=== PATIENT | female | born 1980 | race Caucasian/White ===

== ENCOUNTER 2016-09-13 04:25 | Emergency (ER) | payer OTHER ==
[~2016-09-13] VITALS: Ht 170.2 cm; Wt 94.0 kg
[~2016-09-13 04:25] MED LIST: BENT20TA PO; PROM2SUP RECTAL
[2016-09-13 04:28] VITALS: BP 176/113; PULSE 74; RESP 18; TEMP 97.7; O2SAT 100
[2016-09-13] MEDS ORDERED: ALBUAER3 INH (05:19)
--- NOTE | 2016-09-13 05:59 | PD ---
HPI Chief Complaint: GI Complaint Time Seen by Provider: 05:38 Travel History International Travel<30 days: No Contact w/Intl Traveler<30days: No Traveled to known affect area: No History of Present Illness HPI 36-year-old female came to the emergency room with history of severe abdominal pain, nausea and vomiting. Patient says this has been going on for past 3 days and progressively worsening. She has had similar symptoms in the past and was in the emergency room twice over the past one year. She has history of gastric bypass surgery done about 12-15 years ago in [place]. Patient was hypertensive in triage. She looks uncomfortable and anxious. She pointed out to the entire abdomen when I asked her location of the pain. No aggravating or relieving factors identified. [facility] Past Medical History Narrative Medical List of her past medical, surgical, social and family history was reviewed from the nursing note Asthma: Yes Diminished Hearing: No Respiratory: Yes (ASTHMA) ?: Not LMP: CURRENTLY Past Surgical History Abdominal Surgery: Yes (GASTRIC BYPASS ) Cholecystectomy: Yes Tonsillectomy: Yes Other Surgery: Yes (breast augmentation) Social History Alcohol Use: Yes (rare) Tobacco Use: No (quit 6-8 mos ago) Substance Use: No Allergies-Medications (Allergen,Severity, Reaction): Coded Allergies: Codeine (Verified Allergy, Unknown, 09/13/16) Comments List of her allergies reviewed from the nursing note Reported Meds & Prescriptions Reported Meds & Active Scripts Active Zofran Odt (Ondansetron Odt) 4 Mg Tab 4 Mg SL Q6HR PRN [place] (Hydrocodone-Acetaminophen) 10-325 Mg Tab 1 Tab PO Q4H PRN Reported Proair Hfa 8.5 GM Inh (Albuterol Sulfate) 90 Mcg/Act Aer 2 Puff INH Q4-6H PRN 108 mcg/actuation Narrative Medication List of her home medications reviewed from the nursing note Review of Systems Except as stated in HPI: all other systems reviewed are Neg Physical Exam Narrative GENERAL: Awake, alert, obese, anxious, moderate to significant distress SKIN: Warm and dry. HEAD: Atraumatic. Normocephalic. EYES: Pupils equal and round. No scleral icterus. No injection or drainage. ENT: No nasal bleeding or discharge. Mucous membranes pink and moist. NECK: Trachea midline. No JVD. CARDIOVASCULAR: Regular rate and rhythm. No murmur appreciated. RESPIRATORY: No accessory muscle use. Clear to auscultation. Breath sounds equal bilaterally. GASTROINTESTINAL: Abdomen soft, non-tender, nondistended. Hepatic and splenic margins not palpable. MUSCULOSKELETAL: No obvious deformities. No clubbing. No cyanosis. No edema. NEUROLOGICAL: Awake and alert. No obvious cranial nerve deficits. Motor grossly within normal limits. Normal speech. PSYCHIATRIC: Appropriate mood and affect; insight and judgment normal. Data Data Last Documented VS Vital Signs Date Time Temp Pulse Resp B/P Pulse Ox O2 Delivery O2 Flow Rate FiO2 09/13/16 10:55 133/92 95 09/13/16 08:41 73 20 Room Air Orders Complete Blood Count With Diff (09/13/16 06:01) Comprehensive Metabolic Panel (09/13/16 06:01) Lipase (09/13/16 06:01) Urinalysis - C+S If Indicated (09/13/16 06:01) Iv Access Insert/Monitor (09/13/16 06:01) Ecg Monitoring (09/13/16 06:01) Oximetry (09/13/16 06:01) Morphine Inj (Morphine Inj) (09/13/16 06:15) Ondansetron Inj (Zofran Inj) (09/13/16 06:15) Pantoprazole Inj (Protonix Inj) (09/13/16 06:15) Sodium Chlor 0.9% 1000 Ml Inj (Ns 1000 M (09/13/16 06:01) Sodium Chloride 0.9% Flush (Ns Flush) (09/13/16 06:15) Ct Abd/Pel W/O Iv Contrast (09/13/16 06:04) Oral Contrast - Adult (09/13/16 06:07) Diatrizoate Liq ( Gastrocasandra Liq) (09/13/16 06:20) Morphine Inj (Morphine Inj) (09/13/16 08:30) Ondansetron Inj (Zofran Inj) (09/13/16 08:30) Sodium Chlor 0.9% 1000 Ml Inj (Ns 1000 M (09/13/16 09:00) Labs Laboratory Tests Test 09/13/16 09/13/16 05:40 08:37 White Blood Count 7.2 TH/MM3 Red Blood Count 3.96 MIL/MM3 Hemoglobin 12.7 GM/DL Hematocrit 36.6 % Mean Corpuscular Volume 92.4 FL Mean Corpuscular Hemoglobin 32.1 PG Mean Corpuscular Hemoglobin 34.8 % Concent Red Cell Distribution Width 14.0 % Platelet Count 214 TH/MM3 Mean Platelet Volume 8.3 FL Neutrophils (%) (Auto) 86.2 % Lymphocytes (%) (Auto) 8.4 % Monocytes (%) (Auto) 4.6 % Eosinophils (%) (Auto) 0.3 % Basophils (%) (Auto) 0.5 % Neutrophils # (Auto) 6.2 TH/MM3 Lymphocytes # (Auto) 0.6 TH/MM3 Monocytes # (Auto) 0.3 TH/MM3 Eosinophils # (Auto) 0.0 TH/MM3 Basophils # (Auto) 0.0 TH/MM3 CBC Comment DIFF FINAL Differential Comment Sodium Level 133 MEQ/L Potassium Level 3.4 MEQ/L Chloride Level 97 MEQ/L Carbon Dioxide Level 21.1 MEQ/L Anion Gap 15 MEQ/L Blood Urea Nitrogen 5 MG/DL Creatinine 0.72 MG/DL Estimat Glomerular Filtration 93 ML/MIN Rate Random Glucose 98 MG/DL Calcium Level 9.0 MG/DL Total Bilirubin 3.4 MG/DL Aspartate Amino Transf 55 U/L (AST/SGOT) Alanine Aminotransferase 57 U/L (ALT/SGPT) Alkaline Phosphatase 123 U/L Total Protein 7.6 GM/DL Albumin 3.8 GM/DL Lipase 270 U/L Urine Color YELLOW Urine Turbidity CLEAR Urine pH 7.5 Urine Specific [place] 1.016 Urine Protein TRACE mg/dL Urine Glucose (UA) NEG mg/dL Urine Ketones 150 mg/dL Urine Occult Blood NEG Urine Nitrite NEG Urine Bilirubin NEG Urine Urobilinogen 2.0 MG/DL Urine Leukocyte Esterase NEG Urine RBC 1 /hpf Urine WBC 1 /hpf Urine Squamous Epithelial 3 /hpf Cells Urine Mucus FEW /lpf Microscopic Urinalysis Comment CULT NOT INDICATED MDM Medical Decision Making Medical Screen Exam Complete: Yes Emergency Medical Condition: Yes Medical Record Reviewed: Yes Differential Diagnosis Small bowel obstruction, acute pancreatitis, Narrative Course 6:18 AM patient was medicated for pain. She was given IV Zofran and IV Protonix. Awaiting for the blood test results and the CAT scan to be done and resulted. 7:05 AM blood test results are back. White count is within normal limit older she has some left shift. Patient has elevated bilirubin and mildly elevated LFTs. However when trending back she has had higher bili last time. Case was signed over to the oncoming ER physician to follow-up on the CAT scan result. Procedures EKG Prior to Arrival: No Scripts Ondansetron Odt (Zofran Odt)4 Mg Tab4 Mg SL Q6HR PRN (Nausea/Vomiting) #10 TAB Ref 0 Prov:Perry Stanley MD 09/13/16 Hydrocodone-Acetaminophen ([place])10-325 Mg Tab1 Tab PO Q4H PRN (PAIN) #20 TAB Ref 0 Prov:Perry Stanley MD 09/13/16 Joao Hyatt MD Sep 13, 2016 05:59
[2016-09-13] MEDS ORDERED: SODIUM CHLOR 0.9% 1000 ML INJ 1,000 ML IV SCH (06:01)
[2016-09-13] MEDS ORDERED: SODIUM CHLORIDE 0.9% FLUSH 5 ML FLUSH IVF PRN (06:15)
[2016-09-13] MEDS ORDERED: ONDANSETRON HCL 4 MG/2 ML VIAL IVP ONE (06:15)
[2016-09-13] MEDS ORDERED: PANTOPRAZOLE SODIUM 40 MG VIAL IVP ONE (06:15)
[2016-09-13] MEDS ORDERED: MORPHINE SULFATE 4 MG/ML INJ IV PUSH ONE ×2 (06:15→08:30)
[2016-09-13] MEDS ORDERED: DIATRIZOATE MEGLUM/DIATRIZOATE SOD 9 ML CUP ONE (06:20)
[2016-09-13 06:30] VITALS: RESP 18; O2SAT 97
[2016-09-13 06:32] LABS: AUTOMATED NEUTROPHIL # 6.2 TH/MM3 (1.8-7.7); BASOPHIL % 0.5 % (0.0-2.0); EOSINOPHIL % 0.3 % (0.0-4.0); HEMATOCRIT 36.6 % (35.0-46.0); HEMO FLAGS DIFF FINAL; LYMPH % 8.4 % (9.0-44.0); LYMPHOCYTE # 0.6 TH/MM3 (1.0-4.8); MEAN CELL VOLUME 92.4 FL (80.0-100.0); MEAN CORPUSCULAR HEMOGLOBIN 32.1 PG (27.0-34.0); MEAN CORPUSCULAR HGB CONC 34.8 % (32.0-36.0); MONO % 4.6 % (0.0-8.0); NEUT % 86.2 % (16.0-70.0); PLATELET COUNT 214 TH/MM3 (150-450); RED BLOOD COUNT 3.96 MIL/MM3 (4.00-5.30); WHITE BLOOD COUNT 7.2 TH/MM3 (4.0-11.0)
[2016-09-13 06:54] LABS: ANION GAP 15 MEQ/L (5-15); AST (GOT) 55 U/L (15-37); BICARBONATE 21.1 MEQ/L (21.0-32.0); BLOOD UREA NITROGEN 5 MG/DL (7-18); CHLORIDE 97 MEQ/L (98-107); GLOMERULAR FILTRATION RATE 93 ML/MIN (>89); POTASSIUM 3.4 MEQ/L (3.5-5.1); SODIUM (NA) 133 MEQ/L (136-145)
[2016-09-13 06:57] LABS: ALKALINE PHOSPHATASE 123 U/L (45-117); ALT (GPT) 57 U/L (10-53); TOTAL BILIRUBIN ADULT 3.4 MG/DL (0.2-1.0)
--- NOTE | 2016-09-13 07:15 | PD ---
Physical Exam Date Seen by Provider: Sep 13, 2016 Time Seen by Provider: 07:13 Narrative The patient is a 36-year-old female was initially evaluated by the previous physician, Dr. Hyatt. Please refer to the initial history, physical, diagnostic evaluation, and treatment modality plan. The patient was signed out at [address] of the abdomen and pelvis with oral contrast pending. The patient has a history of colitis and previous gastric bypass that was performed in [place]. The patient apparently complained of significant abdominal pain, labs were noted, bilirubin was elevated. According to the previous physician, the patient has a history of elevated bilirubin on previous emergency department visits. Data Data Last Documented VS Vital Signs Date Time Temp Pulse Resp B/P Pulse Ox O2 Delivery O2 Flow Rate FiO2 09/13/16 08:41 73 20 132/75 97 Room Air 09/13/16 04:28 97.7 Orders Complete Blood Count With Diff (09/13/16 06:01) Comprehensive Metabolic Panel (09/13/16 06:01) Lipase (09/13/16 06:01) Urinalysis - C+S If Indicated (09/13/16 06:01) Iv Access Insert/Monitor (09/13/16 06:01) Ecg Monitoring (09/13/16 06:01) Oximetry (09/13/16 06:01) Morphine Inj (Morphine Inj) (09/13/16 06:15) Ondansetron Inj (Zofran Inj) (09/13/16 06:15) Pantoprazole Inj (Protonix Inj) (09/13/16 06:15) Sodium Chlor 0.9% 1000 Ml Inj (Ns 1000 M (09/13/16 06:01) Sodium Chloride 0.9% Flush (Ns Flush) (09/13/16 06:15) Ct Abd/Pel W/O Iv Contrast (09/13/16 06:04) Oral Contrast - Adult (09/13/16 06:07) Diatrizoate Liq ( Gastrocasandra Liq) (09/13/16 06:20) Morphine Inj (Morphine Inj) (09/13/16 08:30) Ondansetron Inj (Zofran Inj) (09/13/16 08:30) Sodium Chlor 0.9% 1000 Ml Inj (Ns 1000 M (09/13/16 09:00) Labs Laboratory Tests Test 09/13/16 09/13/16 05:40 08:37 White Blood Count 7.2 TH/MM3 Red Blood Count 3.96 MIL/MM3 Hemoglobin 12.7 GM/DL Hematocrit 36.6 % Mean Corpuscular Volume 92.4 FL Mean Corpuscular Hemoglobin 32.1 PG Mean Corpuscular Hemoglobin 34.8 % Concent Red Cell Distribution Width 14.0 % Platelet Count 214 TH/MM3 Mean Platelet Volume 8.3 FL Neutrophils (%) (Auto) 86.2 % Lymphocytes (%) (Auto) 8.4 % Monocytes (%) (Auto) 4.6 % Eosinophils (%) (Auto) 0.3 % Basophils (%) (Auto) 0.5 % Neutrophils # (Auto) 6.2 TH/MM3 Lymphocytes # (Auto) 0.6 TH/MM3 Monocytes # (Auto) 0.3 TH/MM3 Eosinophils # (Auto) 0.0 TH/MM3 Basophils # (Auto) 0.0 TH/MM3 CBC Comment DIFF FINAL Differential Comment Sodium Level 133 MEQ/L Potassium Level 3.4 MEQ/L Chloride Level 97 MEQ/L Carbon Dioxide Level 21.1 MEQ/L Anion Gap 15 MEQ/L Blood Urea Nitrogen 5 MG/DL Creatinine 0.72 MG/DL Estimat Glomerular Filtration 93 ML/MIN Rate Random Glucose 98 MG/DL Calcium Level 9.0 MG/DL Total Bilirubin 3.4 MG/DL Aspartate Amino Transf 55 U/L (AST/SGOT) Alanine Aminotransferase 57 U/L (ALT/SGPT) Alkaline Phosphatase 123 U/L Total Protein 7.6 GM/DL Albumin 3.8 GM/DL Lipase 270 U/L Urine Color YELLOW Urine Turbidity CLEAR Urine pH 7.5 Urine Specific [place] 1.016 Urine Protein TRACE mg/dL Urine Glucose (UA) NEG mg/dL Urine Ketones 150 mg/dL Urine Occult Blood NEG Urine Nitrite NEG Urine Bilirubin NEG Urine Urobilinogen 2.0 MG/DL Urine Leukocyte Esterase NEG Urine RBC 1 /hpf Urine WBC 1 /hpf Urine Squamous Epithelial 3 /hpf Cells Urine Mucus FEW /lpf Microscopic Urinalysis Comment CULT NOT INDICATED MDM Medical Record Reviewed: Yes Supervised Visit with CALI: No Interpretation(s) Laboratory Tests Test 09/13/16 09/13/16 05:40 08:37 White Blood Count 7.2 TH/MM3 Red Blood Count 3.96 MIL/MM3 Hemoglobin 12.7 GM/DL Hematocrit 36.6 % Mean Corpuscular Volume 92.4 FL Mean Corpuscular Hemoglobin 32.1 PG Mean Corpuscular Hemoglobin 34.8 % Concent Red Cell Distribution Width 14.0 % Platelet Count 214 TH/MM3 Mean Platelet Volume 8.3 FL Neutrophils (%) (Auto) 86.2 % Lymphocytes (%) (Auto) 8.4 % Monocytes (%) (Auto) 4.6 % Eosinophils (%) (Auto) 0.3 % Basophils (%) (Auto) 0.5 % Neutrophils # (Auto) 6.2 TH/MM3 Lymphocytes # (Auto) 0.6 TH/MM3 Monocytes # (Auto) 0.3 TH/MM3 Eosinophils # (Auto) 0.0 TH/MM3 Basophils # (Auto) 0.0 TH/MM3 CBC Comment DIFF FINAL Differential Comment Sodium Level 133 MEQ/L Potassium Level 3.4 MEQ/L Chloride Level 97 MEQ/L Carbon Dioxide Level 21.1 MEQ/L Anion Gap 15 MEQ/L Blood Urea Nitrogen 5 MG/DL Creatinine 0.72 MG/DL Estimat Glomerular Filtration 93 ML/MIN Rate Random Glucose 98 MG/DL Calcium Level 9.0 MG/DL Total Bilirubin 3.4 MG/DL Aspartate Amino Transf 55 U/L (AST/SGOT) Alanine Aminotransferase 57 U/L (ALT/SGPT) Alkaline Phosphatase 123 U/L Total Protein 7.6 GM/DL Albumin 3.8 GM/DL Lipase 270 U/L Urine Color YELLOW Urine Turbidity CLEAR Urine pH 7.5 Urine Specific [place] 1.016 Urine Protein TRACE mg/dL Urine Glucose (UA) NEG mg/dL Urine Ketones 150 mg/dL Urine Occult Blood NEG Urine Nitrite NEG Urine Bilirubin NEG Urine Urobilinogen 2.0 MG/DL Urine Leukocyte Esterase NEG Urine RBC 1 /hpf Urine WBC 1 /hpf Urine Squamous Epithelial 3 /hpf Cells Urine Mucus FEW /lpf Microscopic Urinalysis Comment CULT NOT INDICATED Last Impressions Abdomen/Pelvis CT 09/13/16 0604 Signed Impressions: Service Date/Time: Tuesday, September 13, 2016 09:25 - CONCLUSION: 1. There is inflammatory changes involving the head of the pancreas characteristic of pancreatitis. 2. Prominence of the liver with fatty infiltration. 3. Mild prominence of the spleen. 4. Bilateral granulomas in the lung bases. 5. Otherwise, no other significant changes compared to the prior study. Kaleb Franco MD Differential Diagnosis Differential diagnosis includes pancreatitis, gastritis, peptic ulcer disease, colitis, porphyria, biliary colic, pyelonephritis, choledocholithiasis. Narrative Course The patient was evaluated by the previous physician, Dr. Hyatt. Please refer to the initial history, physical, diagnostic evaluation, treatment modality plan. The patient was signed out at [address] of the abdomen and pelvis with oral contrast pending. CT reveals mild inflammation the head of the pancreas, lipase level is normal. The patient has had a previous cholecystectomy and has a history of chronic elevated bilirubin. I had a discussion with the patient at bedside, she does admit to drinking moderate amounts of alcohol. I advised her to stop drinking alcohol, pain medications and antiemetics as directed, follow-up with her primary physician. She is advised to have a clear liquid diet and advance as tolerated. If symptoms persist, she is advised to return for reevaluation of her lipase level. Patient agrees and understands. The patient has a ride home. The patient was reevaluated at 10:30 AM and her pain had resolved. Diagnosis Primary Impression: Pancreatitis Qualified Code: K85.90 - Acute pancreatitis, unspecified complication status, unspecified pancreatitis type Additional Impression: Abdominal pain Qualified Code: R10.13 - Epigastric pain Patient Instructions: General Instructions Additional Instruction: Medications as directed. Stop drinking alcohol. Clear liquid diet and advance as tolerated. Please provide the patient a copy of her CT results and lab results at discharge. Follow-up with your primary physician. Med/Other Pt SpecificInfo: Prescription(s) given Scripts Ondansetron Odt (Zofran Odt)4 Mg Tab4 Mg SL Q6HR PRN (Nausea/Vomiting) #10 TAB Ref 0 Prov:Perry Stanley MD 09/13/16 Hydrocodone-Acetaminophen ([place])10-325 Mg Tab1 Tab PO Q4H PRN (PAIN) #20 TAB Ref 0 Prov:Perry Stanley MD 09/13/16 Disposition: 01 DISCHARGE HOME Condition: Stable Perry Stanley MD Sep 13, 2016 07:15
[2016-09-13] MEDS ORDERED: ONDANSETRON HCL 4 MG/2 ML VIAL IV PUSH ONE (08:30)
[2016-09-13 08:41] VITALS: BP 132/75; PULSE 73; RESP 20; O2SAT 97
[2016-09-13 08:49] LABS: BLOOD, URINE NEG (NEG); COMMENT (UR) CULT NOT INDICATED; CULTURE IF INDICATED CULT NOT INDICATED; GLUCOSE,URINE NEG (NEG); KETONE, URINE 150 mg/dL (NEG); MUCUS URINE FEW /lpf (OCC); NITRITE,URINE NEG (NEG); PH, URINE 7.5 (5.0-8.5); SQUAMOUS EPITHELIAL CELL URINE 3 /hpf (0-5); URINE COLOR YELLOW (YELLW/STRAW)
[2016-09-13] MEDS ORDERED: SODIUM CHLOR 0.9% 1000 ML INJ 1,000 ML IV ONE (09:00)
--- NOTE | 2016-09-13 09:42 | RADRPT ---
EXAM DATE/TIME: 09/13/2016 09:25 [facility] COMPARISON: CT ABDOMEN & PELVIS W CONTRAST, February 22, 2016, 19:23. INDICATIONS : Severe abdominal pain, nausea and vomiting. ORAL CONTRAST: Prescribed oral contrast ingested. RADIATION DOSE: 16.20 CTDIvol (mGy) MEDICAL HISTORY : Colitis. SURGICAL HISTORY : Gastric bypass. Cholecystectomy.Breast augmentation. ENCOUNTER: Initial ACUITY: 3 days PAIN SCALE: 4/10 LOCATION: Bilateral upper quadrant TECHNIQUE: Volumetric scanning of the abdomen and pelvis was performed. Using automated exposure control and ad justment of the mA and/or kV according to patient size, radiation dose was kept as low as reasonably achievable to obtain optimal diagnostic quality images. The lack of IV contrast limits the diagnosis for certain organ pathology. FINDINGS: LOWER LUNGS: Bilateral granulomas. Otherwise lung bases clear. There is a hiatal hernia at the GE junction which i s stable compared to the prior study. LIVER: Liver is prominent in size measuring 19.9 cm. There is mild fatty infiltration. No dilated biliary du cts. The gallbladder is been surgically removed. SPLEEN: Mildly prominent at 13.7 cm. PANCREAS: There is inflammatory changes involving the head of the pancreas characteristic for pancreatitis. The body and tail of pancreas within normal limits. No free fluid or loculated fluid collections are dem onstrated. KIDNEYS: Normal in size and shape. There is no mass, stone, or hydronephrosis. ADRENAL GLANDS: Within normal limits. VASCULAR: There is no aortic aneurysm. BOWEL/MESENTERY: The stomach, small bowel, and colon demonstrate no acute abnormality. There is no free intraperitone al air or fluid. ABDOMINAL WALL: Within normal limits. RETROPERITONEUM: There is no lymphadenopathy. BLADDER: No wall thickening or mass. REPRODUCTIVE: Within normal limits. INGUINAL: There is no lymphadenopathy or hernia. MUSCULOSKELETAL: Within normal limits for patient age. CONCLUSION: 1. There is inflammatory changes involving the head of the pancreas characteristic of pancreatitis. 2. Prominence of the liver with fatty infiltration. 3. Mild prominence of the spleen. 4. Bilateral granulomas in the lung bases. 5. Otherwise, no other significant changes compared to the prior study. Kaleb Franco MD on September 13, 2016 at 9:36 Board Certified Radiologist. This report was verified electronically.
[2016-09-13] MEDS ORDERED: ZOFR4TAB3 SL (10:32)
[2016-09-13] MEDS ORDERED: HYDR-3366 PO (10:32)
[2016-09-13 10:55] VITALS: BP 133/92
== END 2016-09-13 11:29 | disposition home or self-care (01) ==
LOC: NEPE 04:25
DX: K85.90 Acute pancreatitis without necrosis or infection, unspecified (principal); R10.13 Epigastric pain; E80.6 Other disorders of bilirubin metabolism; K76.0 Fatty (change of) liver, not elsewhere classified; R79.89 Other specified abnormal findings of blood chemistry; J45.909 Unspecified asthma, uncomplicated; Z98.84 Bariatric surgery status
CPT/HCPCS: 74176; 80053; 81001; 83690; 85025; 96361; 96374; 96375; 96376; 99284; C9113; J2270; J2405; J7030; Q9963